=== PATIENT | female | born 1990 | race African-American/Black ===

== ENCOUNTER 2017-02-10 18:56 | Emergency (ER) | payer BC ==
[~2017-02-10] VITALS: Ht 162.6 cm; Wt 133.8 kg
[2017-02-10 19:49] VITALS: BP 131/62
--- NOTE | 2017-02-10 19:50 | PHYS DOC ---
Past Medical History Past Medical History: Hypertension, Other Additional Past Medical Histor: PRE DIABETES Past Surgical History: No Surgical History Alcohol Use: None Drug Use: None Adult General Chief Complaint Chief Complaint: GROIN PAIN HPI HPI Patient is a 26 year old female who presents here today complaining of bumps in her vaginal area that started on Tuesday as well as bloody stool times today. Patient has any fevers shakes chills nausea vomiting diarrhea chest pain shortness of breath cough cold rhinorrhea. Patient has any dysuria frequency or urgency. Patient has any vaginal discharge. Patient has any dizziness or shortness of breath. Patient reports no history of hemorrhoids or fissures in the past. Patient reports she had 4 loose bowel movement was today with some red blood on the stool. Patient has any diabetes liver longer kidney problems. Patient reports that she does have a history of hypertension but is not on any medication. Patient has any prior surgeries. Patient does smoke does not drink or do drugs. Patient is not allergic to any medications. Patient's last menstrual period was one week ago. Patient reports that she has had STD in the past. She reports that she was diagnosed with gonorrhea. Patient reports her last sexual intercourse approximately one year ago Review of systems: Constitutional: Denies fever or chills Eyes: Denies change in visual acuity, redness, or eye pain HENT: Denies nasal congestion or sore throat All other review systems are negative except as documented in the history of present illness. Physical exam: Constitutional: Well developed, well nourished, no acute distress, non-toxic appearance. HENT: Normocephalic, atraumatic, bilateral external ears normal, oropharynx moist, no oral exudates, nose normal. Eyes: PERRLA, EOMI, conjunctiva normal, no discharge. Neck: Normal range of motion, no tenderness, supple, no stridor. Cardiovascular:Heart rate regular rhythm, Lungs & Thorax: Bilateral breath sounds clear to auscultation Abdomen: Bowel sounds normal, soft, no tenderness, no masses, no pulsatile masses. Skin: Warm, dry, no erythema, no rash. Back: No tenderness, no CVA tenderness. Extremities: No tenderness, no cyanosis, no clubbing, ROM intact, no edema. Neurologic: Alert and oriented X 3, normal motor function, normal sensory function, no focal deficits noted. Psychologic: Affect normal, judgement normal, mood normal. exam: Patient was 4 ulcer lesions on her right labia majora in the air the skin. Patient does appear to shave her pubic hair. Lesions are tender to palpation. There is no purulent material. There are no vesicles. Patient's pelvic exam was otherwise unremarkable. Patient has no cervical motion tenderness. Patient has no discharge from her cervix. Rectal: Brown stool no blood. Patient does have palpable hemorrhoids. Positive fissure at approximately 3 o'clock position. Assessment and plan 26-year-old female who presents to the ER today secondary to bumps in her vaginal area. Patient had a pelvic exam which showed an area that might be secondary to a folliculitis but appears to be healing with no purulent drainage or erythema. The is also be secondary to herpetic lesions. Herpes culture swabs were obtained and sent. Patient's rectal exam was consistent with an anal fissure. Patient is clinically and hemodynamically stable for discharged home. Patient was instructed to follow-up with her primary care physician for further evaluation of her rectal bleeding. Patient was informed that we will be contacting her if any further cultures are positive. This time I do not think it would beneficial to empirically treat the patient for tenderness to the given the benign nature of her exam. Allergies Allergies Allergies Coded Allergies Type Severity Reaction Last Updated Verified No Known Drug Allergies 05/04/14 No Current Patient Data Vital Signs Vital Signs Date Time Temp Pulse Resp B/P (MAP) Pulse Ox O2 Delivery O2 Flow Rate FiO2 02/10/17 19:17 99.2 113 20 159/85 (109) 98 Room Air 99.2 Lab Values Laboratory Tests Test 02/10/17 19:18 POC Urine HCG, Qualitative Hcg negative (Negative) EKG EKG [] Radiology/Procedures Radiology/Procedures [] Course & Med Decision Making Course & Med Decision Making Pertinent Labs and Imaging studies reviewed. (See chart for details) [] Dragon Disclaimer Dragon Disclaimer This electronic medical record was generated, in whole or in part, using a voice recognition dictation system. Departure Departure Impression: Primary Impression: Skin rash Additional Impression: Anal fissure Disposition: HOME, SELF-CARE Condition: IMPROVED Referrals: DANIEL BLACK MD (PCP) Patient Instructions: Anal Fissure, Adult, Folliculitis, Genital Herpes Additional Instructions: You were seen in the ER today for evaluation of bumps on her vagina. Etiology of the bumps are unclear. These bumps could be secondary to just irritation of your hair follicles or could be secondary to herpes. We have sent cultures and we will notify if they are positive. He may call the ER in 2-3 days to request her test results. Problem Qualifiers KOSTAS DALAL MD Feb 10, 2017 19:50
[2017-02-13 21:09] LABS: HERPES SIMPLEX TYPE 1 Negative (Negative); HERPES SIMPLEX TYPE 2 Positive (Negative)
== END 2017-02-10 19:58 | disposition home or self-care (01) ==
LOC: ER 18:56
DX: R21 Rash and other nonspecific skin eruption (principal); K60.2 Anal fissure, unspecified; I10 Essential (primary) hypertension
CPT/HCPCS: 81025; 87491; 87529; 87591; 99284; Q0111

== ENCOUNTER 2017-10-26 13:33 | Emergency (ER) | payer BC ==
[2017-10-27 11:46] LABS: NEGATIVE OBC STREP NEG; POSITIVE OBC STREP POS
== END 2017-10-26 14:30 | disposition home or self-care (01) ==
LOC: ER 13:33
DX: J02.0 Streptococcal pharyngitis (principal); H66.92 Otitis media, unspecified, left ear; R59.0 Localized enlarged lymph nodes; F31.9 Bipolar disorder, unspecified; I10 Essential (primary) hypertension
CPT/HCPCS: 87880; 99283

== ENCOUNTER 2018-08-15 19:40 | Emergency (ER) | payer BC ==
[~2018-08-15] VITALS: Ht 162.6 cm; Wt 147.6 kg
[~2018-08-15 19:40] MED LIST: AMOX875T PO
[2018-08-15 20:00] VITALS: BP 145/95
[2018-08-15] MEDS ORDERED: IBUPROFEN 400 MG TABLET. PO ONE (20:30)
[2018-08-15] MEDS ORDERED: DEXAMETHASONE SOD PHOS 20 MG/5 ML VIAL. PO ONE (20:30)
--- NOTE | 2018-08-15 20:42 | PHYS DOC ---
Past Medical History Past Medical History: Bipolar, Depression, Hypertension, Other Additional Past Medical Histor: PRE DIABETES (JANIE HEARN APRN) Past Surgical History: No Surgical History (JANIE HEARN APRN) Alcohol Use: None Drug Use: None (JANIE HEARN APRN) Adult General Chief Complaint Chief Complaint: SORE THROAT HPI HPI 28-year-old female presents to ER with complaints of her throat being sore today. Patient denies fever, cough, or other cold or flulike symptoms. She denies taking any skfe-cdw-cycatug medications. She denies difficulty swallowing. 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 LMP last week. (JANIE HEARN APRN) Review of Systems Review of Systems Constitutional: Denies fever or chills [] Eyes: Denies change in visual acuity, redness, or eye pain [] HENT: Denies nasal congestion. Reports sore throat Respiratory: Denies cough or shortness of breath [] Cardiovascular: No additional information not addressed in HPI [] GI: Denies abdominal pain, nausea, vomiting, bloody stools or diarrhea [] : Denies urinary sxs Musculoskeletal: Denies back/neck pain or joint pain [] Integument: Denies rash or skin lesions [] Neurologic: Denies headache, focal weakness or sensory changes [] All other systems were reviewed and found to be within normal limits, except as documented in this note. (JANIE HEARN APRN) Current Medications Current Medications Current Medications Medications (Trade) Dose Ordered Sig/Aleisha Start Time Stop Time Status Last Admin Dose Admin Dexamethasone Sodium Phosphate (Decadron) 10 mg 1X ONCE 08/15/18 20:30 08/15/18 20:31 DC 08/15/18 20:53 10 MG Ibuprofen (Motrin) 400 mg 1X ONCE 08/15/18 20:30 08/15/18 20:31 DC 08/15/18 20:53 400 MG (TEDDY SABA DO) Allergies Allergies Allergies Coded Allergies Type Severity Reaction Last Updated Verified No Known Drug Allergies 05/04/14 No (TEDDY SABA DO) Physical Exam Physical Exam Constitutional: Well developed, well nourished, no acute distress, non-toxic appearance. Clear speech. No muffled voice HENT: Normocephalic, atraumatic, bilateral ears normal, oropharynx moist- no pharyngeal/tonsillar erythema- bilat. tonsillar swelling, uvula midline, no oral exudates, nose normal. [] Eyes: Pupils equal, conjunctiva normal, no discharge. [] Neck: Normal range of motion, no tenderness, supple, no gross adenopathy Cardiovascular: Heart rate regular Lungs & Thorax: Bilateral breath sounds clear to auscultation. Resp. equal/ nonlabored Skin: Warm, dry, no erythema, no rash. [] Back: No tenderness, no CVA tenderness. [] Extremities: No tenderness, no cyanosis, no clubbing, ROM intact, no edema. [] Neurologic: Alert and oriented X 3, normal motor function, normal sensory function, no focal deficits noted. [] Psychologic: Affect normal, judgement normal, mood normal. [] (JANIE HEARN APRN) Current Patient Data Vital Signs Vital Signs Date Time Temp Pulse Resp B/P (MAP) Pulse Ox O2 Delivery O2 Flow Rate FiO2 08/15/18 20:00 98.6 84 18 145/95 (112) 99 Room Air 98.6 (TEDDY SABA DO) Lab Values Laboratory Tests Test 08/15/18 20:00 Group A Streptococcus Rapid Negative (NEGATIVE) Microbiology 08/15/18 Throat Culture - Final, Complete 08/15/18 - Final, Complete (TEDDY SABA DO) Lab Values Laboratory Tests Test 08/15/18 20:00 Group A Streptococcus Rapid Negative (NEGATIVE) (JANIE HEARN APRN) EKG EKG [] (JANIE HEARN APRN) Radiology/Procedures Radiology/Procedures [] (JANIE HEARN APRN) Course & Med Decision Making Course & Med Decision Making Pertinent Labs reviewed. (See chart for details) Pt was evaluated in the ER for c/o waking today with sore throat denying any fever or other flu/cold like sxs. Discussed neg. 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 Education provided on s&s to return to ER for and advised if sxs persist or worsen she should have f/u with her PCP. She was afebrile while in the ER and was provided with dose of Decadron and ibuprofen. Encouraged to increase flds and tylenol/ibuprofen PRN. Discharge instructions were discussed. (JANIE HEARN APRN) Dragon Disclaimer Dragon Disclaimer This electronic medical record was generated, in whole or in part, using a voice recognition dictation system. (JANIE HEARN APRN) Departure Departure Impression: Primary Impression: Sore throat Disposition: HOME, SELF-CARE Condition: STABLE Referrals: DANIEL BLACK MD (PCP) Patient Instructions: Sore Throat Additional Instructions: Ffeo-vld-fzerbgs Tylenol and/or ibuprofen as needed for pain as directed on container. Drink plenty of water. You can try warm fluids as well. Throat lozenges and Chloraseptic spray are also options for symptomatic treatment. If symptoms persist or worsen follow-up with your primary care physician for reevaluation and further care. Attending Signature Attending Signature I have reviewed the PA/DIRECTOR OF STRATEGIC ALLIANCES's note and plan of care. I was available for consultation as needed during the patient's visit in the emergency department. I agree with the clinical impression, plan, and disposition. (TEDDY SABA DO) JANIE HEARN APRN Aug 15, 2018 20:41 TEDDY SABA DO Sep 03, 2018 13:12
== END 2018-08-15 20:56 | disposition home or self-care (01) ==
LOC: ER 19:40
DX: J02.9 Acute pharyngitis, unspecified (principal); I10 Essential (primary) hypertension
CPT/HCPCS: 87070; 87880; 99283; J1100

== ENCOUNTER 2018-11-26 22:40 | Emergency (ER) | payer BC ==
[~2018-11-26] VITALS: Ht 162.6 cm; Wt 149.7 kg
[2018-11-26 23:30] VITALS: BP 116/70
[2018-11-26 23:43] LABS: BILIRUBIN,URINE NEGATIVE (NEG); CLARITY,URINE CLEAR; COLOR,URINE YELLOW; NITRITE,URINE NEGATIVE (NEG); PROTEIN,URINE NEGATIVE (NEG-TRACE); UROBILINOGEN,URINE 0.2 mg/dL (0.2 mg/dL)
[2018-11-26 23:49] LABS: RBC,URINE 0 /HPF (0-2); WBC,URINE RARE /HPF (0-4)
[2018-11-26 23:50] LABS: BACTERIA,URINE MANY /HPF (0-FEW); SQUAMOUS EPITHELIAL CELL,UR MANY /LPF
[2018-11-27] MEDS ORDERED: DEXAMETHASONE 4 MG TABLET PO STA
--- NOTE | 2018-11-27 00:11 | PHYS DOC ---
Past Medical History Past Medical History: Bipolar, Depression, Hypertension, Other Additional Past Medical Histor: PRE DIABETES (TEDDY VILLAR APRN) Past Surgical History: No Surgical History (TEDDY VILLAR APRN) Smoking: Cigarettes, Quit Greater Than 1 Year Alcohol Use: None Drug Use: None (TEDDY VILLAR APRN) Adult General Chief Complaint Chief Complaint: GENERALIZED BODY ACHES HPI HPI Patient is a 28 year old female who presents with multiple complaints. Complaints include fever, hoarseness, runny nose, congestion, headache, sore throat, and body aches. The patient states that this started yesterday and she rates her pain as 7 out of 10 in severity. The patient states she's been using Vicks at home with minimal relief. States her fevers been as high as 101�F. (TEDYD VILLAR APRN) Review of Systems Review of Systems Constitutional: Reports fever or chills [] Eyes: Denies change in visual acuity, redness, or eye pain [] HENT: Reports nasal congestion and sore throat, runny nose, and hoarseness. Respiratory: Denies cough or shortness of breath [] Cardiovascular: No additional information not addressed in HPI [] GI: Denies abdominal pain, nausea, vomiting, bloody stools or diarrhea [] : Denies dysuria or hematuria [] Musculoskeletal: Denies back pain or joint pain [] Integument: Denies rash or skin lesions [] Neurologic: Denies headache, focal weakness or sensory changes [] Endocrine: Denies polyuria or polydipsia [] Complete systems were reviewed and found to be within normal limits, except as documented in this note. (TEDDY VILLAR APRN) Current Medications Current Medications Current Medications Medications (Trade) Dose Ordered Sig/Aleisha Start Time Stop Time Status Last Admin Dose Admin Dexamethasone (Decadron) 10 mg 1X STAT 11/27/18 00:00 11/27/18 00:02 DC 11/27/18 00:14 10 MG (BISI JJ MD) Allergies Allergies Allergies Coded Allergies Type Severity Reaction Last Updated Verified No Known Drug Allergies 05/04/14 No (BISI JJ MD) Physical Exam Physical Exam Constitutional: Well developed, well nourished, no acute distress, non-toxic appearance. [] HENT: Normocephalic, atraumatic, bilateral external ears normal, oropharynx moist, tonsils are 2+/4 with uvula midline, nose normal. [] Eyes: PERRLA, EOMI, conjunctiva normal, no discharge. [] Neck: Normal range of motion, no tenderness, supple, no stridor. [] Cardiovascular:Heart rate regular rhythm, no murmur [] Lungs & Thorax: Bilateral breath sounds clear to auscultation [] Abdomen: Bowel sounds normal, soft, no tenderness, no masses, no pulsatile masses. [] Skin: Warm, dry, no erythema, no rash. [] Back: No tenderness, no CVA tenderness. [] Extremities: No tenderness, no cyanosis, no clubbing, ROM intact, no edema. [] Neurologic: Alert and oriented X 3, normal motor function, normal sensory function, no focal deficits noted. [] Psychologic: Affect normal, judgement normal, mood normal. [] (TEDDY VILLAR APRN) Current Patient Data Vital Signs Vital Signs Date Time Temp Pulse Resp B/P (MAP) Pulse Ox O2 Delivery O2 Flow Rate FiO2 11/26/18 23:30 99.1 111 18 116/70 (85) 96 Room Air 99.1 (BISI JJ MD) Lab Values Laboratory Tests Test 11/26/18 23:30 11/26/18 23:37 11/27/18 00:09 Urine Collection Type Unknown Urine Color Yellow Urine Clarity Clear Urine pH 6.0 Urine Specific [place] 1.020 Urine Protein Negative mg/dL (NEG-TRACE) Urine Glucose (UA) Negative mg/dL (NEG) Urine Ketones (Stick) Negative mg/dL (NEG) Urine Blood Negative (NEG) Urine Nitrite Negative (NEG) Urine Bilirubin Negative (NEG) Urine Urobilinogen Dipstick 0.2 mg/dL (0.2 mg/dL) Urine Leukocyte Esterase Negative (NEG) Urine RBC 0 /HPF (0-2) Urine WBC Rare /HPF (0-4) Urine Squamous Epithelial Cells Many /LPF Urine Bacteria Many /HPF (0-FEW) POC Urine HCG, Qualitative Hcg negative (Negative) Group A Streptococcus Rapid Negative (NEGATIVE) (BISI JJ MD) EKG EKG [] (TEDDY VILLAR APRN) Radiology/Procedures Radiology/Procedures [] (TEDDY VILLAR APRN) Course & Med Decision Making Course & Med Decision Making Pertinent Labs and Imaging studies reviewed. (See chart for details) Will get strep test, and give dexamethasone. Discussed with patient using mucinex at home as well as zyrtec. Strep is negative. Will d/c home. (TEDDY VILLAR APRN) Course & Med Decision Making Staff Physician Addendum: I was working in the ER during the course of this patient's visit. I was available for consultation as needed, but I was not directly involved in the care of this patient. (BISI JJ MD) Dragon Disclaimer Dragon Disclaimer This electronic medical record was generated, in whole or in part, using a voice recognition dictation system. (TEDDY VILLAR APRN) Departure Departure Impression: Primary Impression: Upper respiratory infection Disposition: HOME, SELF-CARE Condition: STABLE Referrals: DANIEL BLACK MD (PCP) Patient Instructions: Upper Respiratory Infection, Adult Additional Instructions: Thank you for visiting [facility]. We appreciate you trusting us with your care. If any additional problems come up don't hesitate to return to visit us. Please follow up with your primary care provider so they can plan additional care if needed and know about the problem that you had. If symptoms worsen come back to the Emergency Department. Any concerning symptoms that start such as chest pain, shortness of air, weakness or numbness on one side of the body, running high fevers or any other concerning symptoms return to the ER. As we discussed please take over the counter Mucinex, Zyrtec, and Flonase for symptom relief. Problem Qualifiers Primary Impression: Upper respiratory infection URI type: unspecified viral URI Qualified Codes: J06.9 - Acute upper respiratory infection, unspecified TEDDY VILLAR APRN Nov 27, 2018 00:11 BISI JJ MD Nov 27, 2018 18:23
== END 2018-11-27 00:52 | disposition home or self-care (01) ==
LOC: ER 22:40
DX: J06.9 Acute upper respiratory infection, unspecified (principal); R51 Headache; M79.18 Myalgia, other site; F31.9 Bipolar disorder, unspecified; I10 Essential (primary) hypertension; Z87.891 Personal history of nicotine dependence
CPT/HCPCS: 81001; 81025; 87070; 87086; 87880; 99284; J8540

== ENCOUNTER 2019-10-08 13:56 | Emergency (ER) | payer BC ==
[~2019-10-08] VITALS: Ht 162.6 cm; Wt 163.6 kg
[2019-10-08 14:58] LABS: BILIRUBIN,URINE NEGATIVE (NEG); CLARITY,URINE CLEAR; COLOR,URINE YELLOW; NITRITE,URINE NEGATIVE (NEG); PH,URINE 6.5 (<5.0-8.0); PROTEIN,URINE NEGATIVE (NEG-TRACE)
[2019-10-08 15:03] LABS: BARBITURATES NEG (NEG); BENZODIAZEPINES NEG (NEG); CANNABINOIDS POS (NEG); COCAINE NEG (NEG); METHADONE NEG (NEG); OPIATES NEG (NEG); PHENCYCLIDINE NEG (NEG)
[2019-10-08 15:04] LABS: AMPHETAMINE/METHAMPHETAMINE NEG (NEG)
[2019-10-08 15:05] LABS: BACTERIA,URINE 0 /HPF (0-FEW); RBC,URINE 0 /HPF (0-2); WBC,URINE 0 /HPF (0-4)
[2019-10-08 15:06] LABS: AMORPHOUS SEDIMENT,UR PRESENT /HPF; SQUAMOUS EPITHELIAL CELL,UR MANY /LPF
--- NOTE | 2019-10-08 15:21 | PHYS DOC ---
Past Medical History Past Medical History: Bipolar, Depression, Hypertension, Other Additional Past Medical Histor: PRE DIABETES Past Surgical History: No Surgical History Smoking Status: Current Some Day Smoker Alcohol Use: None Drug Use: None General Adult EDM: Chief Complaint: ABDOMINAL PAIN HPI: HPI: Patient is a 29 year old female who presents with for the last 2 weeks she is had off-and-on burning pain to the right lower abdomen area. She states it mostly happens at night. She denies nausea, vomiting, diarrhea. She states she has had a cyst removed on her ovary. She states that her period began on September 25 and it was heavier than usual and she had some clots. The bleeding has since stopped. Patient currently has no pain. Review of Systems: Review of Systems: GI: Right lower abdominal pain, denies nausea, vomiting, bloody stools or diarrhea. [] Heart Score: Risk Factors: Risk Factors: DM, Current or recent (<one month) smoker, HTN, HLP, family history of CAD, obesity. Risk Scores: Score 0 - 3: 2.5% MACE over next 6 weeks - Discharge Home Score 4 - 6: 20.3% MACE over next 6 weeks - Admit for Clinical Observation Score 7 - 10: 72.7% MACE over next 6 weeks - Early Invasive Strategies Allergies: Allergies: Allergies Coded Allergies Type Severity Reaction Last Updated Verified No Known Drug Allergies 05/04/14 No Physical Exam: PE: Constitutional: Well developed, well nourished, no acute distress, non-toxic appearance. [] HENT: Normocephalic, atraumatic, bilateral external ears normal, oropharynx moist, no oral exudates, nose normal. [] Eyes: PERRLA, EOMI, conjunctiva normal, no discharge. [] Neck: Normal range of motion, no tenderness, supple, no stridor. [] Cardiovascular:Heart rate regular rhythm, no murmur [] Lungs & Thorax: Bilateral breath sounds clear to auscultation [] Abdomen: Bowel sounds normal, soft, no tenderness, no masses, no pulsatile masses. [] Skin: Warm, dry, no erythema, no rash. [] Back: No tenderness, no CVA tenderness. [] Extremities: No tenderness, no cyanosis, no clubbing, ROM intact, no edema. [] Neurologic: Alert and oriented X 3, normal motor function, normal sensory function, no focal deficits noted. [] Psychologic: Affect normal, judgement normal, mood normal. Normal Physical Exam[] Current Patient Data: Labs: Laboratory Tests Test 10/08/19 14:14 10/08/19 14:20 Urine Collection Type Unknown Urine Color Yellow Urine Clarity Clear Urine pH 6.5 (<5.0-8.0) Urine Specific [place] 1.020 (1.000-1.030) Urine Protein Negative mg/dL (NEG-TRACE) Urine Glucose (UA) Negative mg/dL (NEG) Urine Ketones (Stick) Negative mg/dL (NEG) Urine Blood Negative (NEG) Urine Nitrite Negative (NEG) Urine Bilirubin Negative (NEG) Urine Urobilinogen Dipstick 1.0 mg/dL (0.2 mg/dL) Urine Leukocyte Esterase Negative (NEG) Urine RBC 0 /HPF (0-2) Urine WBC 0 /HPF (0-4) Urine Squamous Epithelial Cells Many /LPF Urine Amorphous Sediment Present /HPF Urine Bacteria 0 /HPF (0-FEW) Urine Opiates Screen Neg (NEG) Urine Methadone Screen Neg (NEG) Urine Barbiturates Neg (NEG) Urine Phencyclidine Screen Neg (NEG) Urine Amphetamine/Methamphetamine Neg (NEG) Urine Benzodiazepines Screen Neg (NEG) Urine Cocaine Screen Neg (NEG) Urine Cannabinoids Screen Pos (NEG) Urine Ethyl Alcohol Neg (NEG) POC Urine HCG, Qualitative Hcg negative (Negative) Vital Signs: Vital Signs Date Time Temp Pulse Resp B/P (MAP) Pulse Ox O2 Delivery O2 Flow Rate FiO2 10/08/19 14:11 18 116/70 (85) Room Air EKG: EKG: [] Radiology/Procedures: Radiology/Procedures: [] Impression: [facility] [address] [place] [address] IMAGING REPORT Signed PATIENT: CARMELO WAYNE ACCOUNT: [id number] : 1990 LOCATION: ER AGE: 29 SEX: F EXAM STATUS: REG ER ORD. PHYSICIAN: REID GLOVER APRN REASON: right lower abd pain, please check appendicts too PROCEDURE: PELVIS W/TV EXAM: Pelvic sonogram. HISTORY: Pain. TECHNIQUE: Transabdominal and transvaginal sonographic imaging of the pelvis was performed. COMPARISON: None. FINDINGS: The uterus measures 10.0 x 6.8 x 6.5 cm. There is a 2.1 cm mass within the superior uterine fundus, consistent with a fibroid. The endometrial stripe measures 6.7 mm in thickness. The ovaries are normal in size and demonstrate normal blood flow. No pelvic free fluid is seen. The appendix is not seen. The exam is limited due to body habitus and bowel gas. IMPRESSION: 1. 2.1 cm uterine fibroid. 2. Otherwise, unremarkable pelvic sonogram. The exam is limited due to body habitus and bowel gas. The appendix is not seen. Electronically signed by: Nadine Desai MD (10/08/2019 4:32 PM) [facility] DICTATED and SIGNED BY: NADINE DESAI MD DATE: 10/08/19 [id number] Course & Med Decision Making: Course & Med Decision Making Pertinent Labs and Imaging studies reviewed. (See chart for details) Alert and oriented. Speaks in full clear sentences. Ambulatory with a steady gait. Skin pink warm and dry. Abdomen is soft and nontender. Patient denies sexually transmitted disease and worries. Vaginal discharge, vaginal odor, dysuria, vaginal pain, fever. Per AIR score patient has a very low risk for having appendicitis. Work is unremarkable. Urinalysis is negative for infection. Ultrasound shows uterine fibroid. Patient to follow-up with gynecology. [] [place] Disclaimer: [place] Disclaimer: This electronic medical record was generated, in whole or in part, using a voice recognition dictation system. Departure Departure Impression: Primary Impression: Uterine fibroid Qualified Codes: D25.9 - Leiomyoma of uterus, unspecified Disposition: HOME, SELF-CARE Condition: STABLE Referrals: DANIEL BLACK MD (PCP) CIARAR PAREDES Jr, MD Patient Instructions: Uterine Fibroid, [id number] Additional Instructions: Follow-up with gynecology or your primary care provider. Take Tylenol or ibuprofen for your pain. Also try using a heating pad. Scripts Ibuprofen (IBUPROFEN) 600 Mg Tablet 600 MG PO PRN Q6HRS PRN for INFLAMMATION, #20 TAB Prov: REID GLOVER APRN 10/08/19 REID GLOVER APRN October 08, 2019 15:21
[2019-10-08 15:35] LABS: BASO # 0.1 x10^3/uL (0.0-0.2); BASO % 1 % (0-3); EOS # 0.1 x10^3/uL (0.0-0.7); EOS % 1 % (0-3); HEMATOCRIT 33.9 % (36.0-47.0); HEMOGLOBIN 10.9 g/dL (12.0-15.5); LYMPH # 3.5 x10^3/uL (1.0-4.8); LYMPH % 34 % (24-48); MEAN CORPUSCULAR HEMOGLOBIN 23 pg (25-35); MEAN CORPUSCULAR HGB CONC 32 g/dL (31-37); MEAN CORPUSCULAR VOLUME 72 fL (79-100); MONO # 0.4 x10^3/uL (0.0-1.1); MONO % 4 % (0-9); NEUT # 6.1 x10^3/uL (1.8-7.7); NEUT % 60 % (31-73); PLATELET COUNT 377 x10^3/uL (140-400); RED CELL DISTRIBUTION WIDTH 17.7 % (11.5-14.5); WHITE BLOOD COUNT 10.2 x10^3/uL (4.0-11.0)
[2019-10-08 15:43] LABS: CALCIUM 8.5 mg/dL (8.5-10.1); CREATININE 0.9 mg/dL (0.6-1.0); GFR 90.2; POTASSIUM 3.9 mmol/L (3.5-5.1)
[2019-10-08 15:49] LABS: ALBUMIN/GLOBULIN RATIO 0.7 (1.0-1.7); TOTAL BILIRUBIN 0.2 mg/dL (0.2-1.0); TOTAL PROTEIN 7.3 g/dL (6.4-8.2)
--- NOTE | 2019-10-08 16:35 | RAD ---
EXAM: Pelvic sonogram. HISTORY: Pain. TECHNIQUE: Transabdominal and transvaginal sonographic imaging of the pelvis was performed. COMPARISON: None. FINDINGS: The uterus measures 10.0 x 6.8 x 6.5 cm. There is a 2.1 cm mass within the superior uterine fundus, consistent with a fibroid. The endometrial stripe measures 6.7 mm in thickness. The ovaries are normal in size and demonstrate normal blood flow. No pelvic free fluid is seen. The appendix is not seen. The exam is limited due to body habitus and bowel gas. IMPRESSION: 1. 2.1 cm uterine fibroid. 2. Otherwise, unremarkable pelvic sonogram. The exam is limited due to body habitus and bowel gas. The appendix is not seen. Electronically signed by: Nadine Morris MD (10/08/2019 4:32 PM) [facility]
[2019-10-08 17:00] VITALS: BP 167/90
[2019-10-08] MEDS ORDERED: IBUP-1007 PO (17:01)
== END 2019-10-08 17:24 | disposition home or self-care (01) ==
LOC: ER 13:56
DX: D25.9 Leiomyoma of uterus, unspecified (principal); R10.31 Right lower quadrant pain; I10 Essential (primary) hypertension; F32.9 Major depressive disorder, single episode, unspecified; F17.200 Nicotine dependence, unspecified, uncomplicated
CPT/HCPCS: 36415; 76830; 76856; 80053; 80307; 81001; 81025; 85025; 99284